=== PATIENT | male | born 1945 | race Caucasian/White ===

== ENCOUNTER 2020-08-02 10:17 | Outpatient (REF) | payer MEDICARE, SELFPAY ==
[2020-08-02 11:01] LABS: Estimated Average Glucose 105 mg/dL; Hemoglobin A1c % 5.3 %
[2020-08-02 11:22] LABS: Alanine Aminotransferase 24 U/L (0-40); Albumin Level 4.2 g/dL (3.5-5.0); Alkaline Phosphatase 86 U/L (39-117); Aspartate Amino Transferase 19 U/L (5-37); Bilirubin Direct 0.3 mg/dL (0.0-0.5); Bilirubin Total 0.9 mg/dL (0.0-1.0); Cholesterol 157 mg/dL; Glucose Fasting 100 mg/dL (60-99); HDL Cholesterol 40 mg/dL; LDL Cholesterol Calculated 96 mg/dl; Total Protein 6.6 g/dL (6.5-8.0); Triglycerides 107 mg/dL
[2020-08-02 12:41] LABS: Reflex LDLD? No
== END 2020-08-02 10:18 | disposition home or self-care (01) ==
LOC: HO.LNP 10:17
PROVIDERS: PCP Internal Medicine; Visit Provider Internal Medicine
DX: R73.03 Prediabetes (principal); E78.00 Pure hypercholesterolemia, unspecified
CPT/HCPCS: 80061; 80076; 82947; 83036

== ENCOUNTER 2021-02-20 10:40 | Outpatient (REF) | payer MEDICARE, SELFPAY ==
[2021-02-20 10:45] LABS: MANUAL DIFF FLAG NO
[2021-02-20 11:27] LABS: Basophils Percent Auto 0.3 % (0-2); Eosinophils Absolute Auto 0.1 X10*3/uL (0.0-0.4); Eosinophils Percent Auto 2.2 % (0-4); Hematocrit 41.8 % (42-52); Hemoglobin 13.6 g/dl (14.0-18.0); Imm Gran Abs Auto 0.01 X10*3/uL (0.00-0.03); Imm Gran Pct Auto 0.2 % (0.0-0.4); Lymphocytes Absolute Auto 1.9 X10*3/uL (1.2-4.9); Lymphocytes Percent Auto 29.8 % (20-40); Mean Corpuscular HGB Conc 32.5 g/dl (31.0-36.0); Mean Corpuscular Hemoglobin 30.2 pg (27.0-33.0); Mean Corpuscular Volume 92.9 fL (80-98); Mean Platelet Volume 9.8 fL (9.4-12.4); Monocytes Absolute Auto 0.5 X10*3/uL (0.1-1.2); Monocytes Percent Auto 7.7 % (2-11); Neutrophils Absolute Auto 3.8 X10*3/uL (2.0-8.3); Neutrophils Percent Auto 59.8 % (45-73); Platelet Count 209 X10*3/uL (160-400); Red Cell Distribution Width 13.6 % (11.0-16.0); White Blood Count 6.3 X10*3/uL (4.8-10.8)
[2021-02-20 12:07] LABS: Appearance Urine CLEAR; Color Urine YELLOW; Glucose Urine UA NEG (NEG); Leukocyte Esterase Urine NEG (NEG); Nitrite Urine NEG (NEG); Specific Gravity - Urine 1.015 (1.005-1.025); Urine Blood NEG (NEG); Urine Ketones NEG (NEG); Urine Protein NEG (NEG-TRACE)
[2021-02-20 12:48] LABS: Creatinine Urine 90.59 mg/dL
[2021-02-20 13:03] LABS: Estimated Average Glucose 111 mg/dL; Hemoglobin A1c % 5.5 %
[2021-02-20 14:45] LABS: Vitamin D 25-OH Total 46.6 ng/mL (>30)
[2021-02-20 14:46] LABS: Alanine Aminotransferase 21 U/L (0-40); Alkaline Phosphatase 84 U/L (39-117); Anion Gap 12 (12-20); Aspartate Amino Transferase 16 U/L (5-37); Bilirubin Total 0.8 mg/dL (0.0-1.0); Blood Urea Nitrogen 10 mg/dL (9-16); Calcium 8.5 mg/dL (8.4-10.2); Carbon Dioxide 27 mmol/L (22-29); Chloride 107 mmol/L (96-108); Cholesterol 142 mg/dL; Estimated Glomerular Filt Rate > 60; Glucose Fasting 106 mg/dL (60-99); HDL Cholesterol 41 mg/dL; LDL Cholesterol Calculated 86 mg/dl; Potassium 3.6 mmol/L (3.3-5.1); Sodium 142 mmol/L (135-145); Total Protein 6.2 g/dL (6.5-8.0); Triglycerides 77 mg/dL
[2021-02-20 15:17] LABS: PSA,Total (Free>4and<10) 1.88 ng/mL (0.00-4.00)
[2021-02-20 18:10] LABS: Reflex LDLD? No
== END 2021-02-20 10:41 | disposition home or self-care (01) ==
LOC: HO.LNP 10:40
PROVIDERS: Visit Provider Internal Medicine
DX: R73.03 Prediabetes (principal); I10 Essential (primary) hypertension; E78.00 Pure hypercholesterolemia, unspecified; E55.9 Vitamin D deficiency, unspecified; Z12.5 Encounter for screening for malignant neoplasm of prostate
CPT/HCPCS: 80053; 80061; 81003; 82043; 82306; 83036; 84153; 85025

== ENCOUNTER 2021-08-17 11:06 | Outpatient (REF) | payer MEDICARE, SELFPAY ==
[2021-08-17 12:02] LABS: Alanine Aminotransferase 15 U/L (0-40); Albumin Level 4.1 g/dL (3.5-5.0); Alkaline Phosphatase 84 U/L (39-117); Aspartate Amino Transferase 15 U/L (5-37); Bilirubin Direct 0.3 mg/dL (0.0-0.5); Bilirubin Total 0.7 mg/dL (0.0-1.0); Cholesterol 146 mg/dL; Glucose Fasting 111 mg/dL (60-99); HDL Cholesterol 36 mg/dL; LDL Cholesterol Calculated 91 mg/dl; Total Protein 6.7 g/dL (6.5-8.0); Triglycerides 96 mg/dL
[2021-08-17 12:08] LABS: Estimated Average Glucose 114 mg/dL; Hemoglobin A1c % 5.6 %
[2021-08-17 13:35] LABS: Reflex LDLD? No
== END 2021-08-17 11:07 | disposition home or self-care (01) ==
LOC: HO.LNP 11:06
PROVIDERS: Visit Provider Internal Medicine
DX: E78.00 Pure hypercholesterolemia, unspecified (principal); R73.03 Prediabetes
CPT/HCPCS: 80061; 80076; 82947; 83036

== ENCOUNTER 2022-02-22 12:10 | Outpatient (REF) | payer MEDICARE, SELFPAY ==
[2022-02-22 12:15] LABS: MANUAL DIFF FLAG NO
[2022-02-22 13:02] LABS: Appearance Urine Clear; Basophils Percent Auto 0.3 % (0-2); Color Urine Yellow; Eosinophils Absolute Auto 0.1 X10*3/uL (0.0-0.4); Eosinophils Percent Auto 1.8 % (0-4); Glucose Urine UA Negative (Negative); Hematocrit 42.6 % (42.0-52.0); Imm Gran Abs Auto 0.01 X10*3/uL (0.00-0.03); Imm Gran Pct Auto 0.1 % (0.0-0.4); Leukocyte Esterase Urine Negative (Negative); Lymphocytes Absolute Auto 1.8 X10*3/uL (1.2-4.9); Lymphocytes Percent Auto 25.9 % (20-40); Mean Corpuscular HGB Conc 32.9 g/dl (31.0-36.0); Mean Corpuscular Hemoglobin 30.3 pg (27.0-33.0); Mean Corpuscular Volume 92.2 fL (80.0-98.0); Mean Platelet Volume 9.6 fL (9.4-12.4); Monocytes Absolute Auto 0.6 X10*3/uL (0.1-1.2); Monocytes Percent Auto 8.1 % (2-11); Neutrophils Absolute Auto 4.3 x10*3/uL (2.0-8.3); Neutrophils Percent Auto 63.8 % (45-73); Nitrite Urine Negative (Negative); PH 6.5 (5.0-9.0); Platelet Count 219 X10*3/uL (160-400); Red Blood Count 4.62 X10*6/uL (4.60-5.80); Red Cell Distribution Width 13.6 % (11.0-16.0); Urine Blood Negative (Negative); Urine Ketones Negative (Negative); Urine Protein Negative (Neg-Trace); White Blood Count 6.8 X10*3/uL (4.8-10.8)
[2022-02-22 13:14] LABS: Estimated Average Glucose 111 mg/dL; Hemoglobin A1c % 5.5 %
[2022-02-22 13:15] LABS: Alanine Aminotransferase 17 U/L (0-40); Alkaline Phosphatase 83 U/L (39-117); Anion Gap 15 (12-20); Aspartate Amino Transferase 16 U/L (5-37); Bilirubin Total 1.1 mg/dL (0.0-1.0); Blood Urea Nitrogen 14 mg/dL (9-16); Carbon Dioxide 26 mmol/L (22-29); Chloride 105 mmol/L (96-108); Cholesterol 146 mg/dL; Estimated Glomerular Filt Rate > 60; Glucose Fasting 105 mg/dL (60-99); HDL Cholesterol 38 mg/dL; LDL Cholesterol Calculated 93 mg/dl; Potassium 3.6 mmol/L (3.3-5.1); Sodium 142 mmol/L (135-145); Total Protein 6.5 g/dL (6.5-8.0); Triglycerides 75 mg/dL
[2022-02-22 13:35] LABS: PSA,Total (Free>4and<10) 2.13 ng/mL (0.00-4.00); Vitamin D 25-OH Total 44.2 ng/mL (>30)
[2022-02-22 13:45] LABS: Creatinine Urine 174.91 mg/dL; Microalbum/Creatinine Ratio Ur 9.7 ug/mg cr
== END 2022-02-22 12:11 | disposition home or self-care (01) ==
LOC: HO.LNP 12:10
PROVIDERS: Visit Provider Internal Medicine
DX: Z12.5 Encounter for screening for malignant neoplasm of prostate (principal); I10 Essential (primary) hypertension; R73.03 Prediabetes; E78.00 Pure hypercholesterolemia, unspecified; E55.9 Vitamin D deficiency, unspecified
CPT/HCPCS: 80053; 80061; 81003; 82043; 82306; 83036; 84153; 85025

== ENCOUNTER 2022-08-20 11:05 | Outpatient (REF) | payer MEDICARE, SELFPAY ==
[2022-08-20 11:31] LABS: Estimated Average Glucose 111 mg/dL; Hemoglobin A1c % 5.5 %
[2022-08-20 12:16] LABS: Alanine Aminotransferase 16 U/L (0-40); Albumin Level 3.9 g/dL (3.5-5.0); Alkaline Phosphatase 92 U/L (39-117); Aspartate Amino Transferase 17 U/L (5-37); Bilirubin Direct 0.4 mg/dL (0.0-0.5); Bilirubin Total 1.1 mg/dL (0.0-1.0); Cholesterol 143 mg/dL; Glucose Fasting 105 mg/dL (60-99); HDL Cholesterol 39 mg/dL; LDL Cholesterol Calculated 90 mg/dl; Total Protein 6.3 g/dL (6.5-8.0); Triglycerides 70 mg/dL
[2022-08-20 14:22] LABS: Reflex LDLD? No
== END 2022-08-20 11:06 | disposition home or self-care (01) ==
LOC: HO.LNP 11:05
PROVIDERS: Visit Provider Internal Medicine
DX: R73.03 Prediabetes (principal); E78.00 Pure hypercholesterolemia, unspecified
CPT/HCPCS: 80061; 80076; 82947; 83036

== ENCOUNTER 2023-03-14 10:44 | Outpatient (REF) | payer MEDICARE, SELFPAY ==
[2023-03-14 10:48] LABS: MANUAL DIFF FLAG NO
[2023-03-14 11:31] LABS: Appearance Urine Clear; Color Urine Yellow; Glucose Urine UA Negative (Negative); Leukocyte Esterase Urine Negative (Negative); Nitrite Urine Negative (Negative); PH 7.5 (5.0-9.0); Urine Blood Negative (Negative); Urine Ketones Trace mg/dL (Negative); Urine Protein Negative (Neg-Trace)
[2023-03-14 11:34] LABS: Bacteria Urine None Seen (None Seen); Hyaline Casts Urine 0-2 /LPF (0-2); RBC Urine 0-2 /HPF (0-2); Squamous Epithelial Cell Urine 0-2 /HPF (0-2); WBC Urine 0-5 /HPF (0-5)
[2023-03-14 11:35] LABS: Basophils Absolute Auto 0.1 X10*3/uL (0.0-0.2); Basophils Percent Auto 0.5 % (0-2); Eosinophils Absolute Auto 0.2 X10*3/uL (0.0-0.4); Eosinophils Percent Auto 1.7 % (0-4); Hematocrit 44.3 % (42.0-52.0); Hemoglobin 14.4 g/dl (14.0-18.0); Imm Gran Abs Auto 0.03 X10*3/uL (0.00-0.03); Imm Gran Pct Auto 0.3 % (0.0-0.4); Lymphocytes Absolute Auto 1.2 X10*3/uL (1.2-4.9); Lymphocytes Percent Auto 11.9 % (20-40); Mean Corpuscular HGB Conc 32.5 g/dl (31.0-36.0); Mean Corpuscular Hemoglobin 30.4 pg (27.0-33.0); Mean Corpuscular Volume 93.7 fL (80.0-98.0); Mean Platelet Volume 9.8 fL (9.4-12.4); Monocytes Absolute Auto 0.7 X10*3/uL (0.1-1.2); Monocytes Percent Auto 6.9 % (2-11); Neutrophils Absolute Auto 7.8 x10*3/uL (2.0-8.3); Neutrophils Percent Auto 78.7 % (45-73); Platelet Count 227 X10*3/uL (160-400); Red Blood Count 4.73 X10*6/uL (4.60-5.80); Red Cell Distribution Width 13.5 % (11.0-16.0); White Blood Count 9.9 X10*3/uL (4.8-10.8)
[2023-03-14 12:00] LABS: Alanine Aminotransferase 12 U/L (0-40); Albumin Level 4.2 g/dL (3.5-5.0); Alkaline Phosphatase 80 U/L (39-117); Anion Gap 14 (12-20); Aspartate Amino Transferase 18 U/L (5-37); Bilirubin Total 1.2 mg/dL (0.0-1.0); Blood Urea Nitrogen 9 mg/dL (9-16); Calcium 9.5 mg/dL (8.4-10.2); Carbon Dioxide 27 mmol/L (22-29); Chloride 103 mmol/L (96-108); Cholesterol 149 mg/dL (<200); Estimated Average Glucose 103 mg/dL; Estimated Glomerular Filt Rate > 60; Glucose Fasting 110 mg/dL (60-99); HDL Cholesterol 41 mg/dL (>40); Hemoglobin A1c % 5.2 % (<6.0); LDL Cholesterol Calculated 88 mg/dL (<100); Potassium 3.3 mmol/L (3.3-5.1); Sodium 141 mmol/L (135-145); Triglycerides 100 mg/dL (<150)
[2023-03-14 12:06] LABS: PSA,Total (Free>4and<10) 2.52 ng/mL (0.00-4.00)
[2023-03-14 12:07] LABS: Vitamin D 25-OH Total 72.6 ng/mL (>30)
[2023-03-14 12:26] LABS: Creatinine Urine 42.69 mg/dL; Microalbumin Urine < 5.0 mg/L
== END 2023-03-14 10:45 | disposition home or self-care (01) ==
LOC: HO.LNP 10:44
PROVIDERS: Visit Provider Internal Medicine
DX: I10 Essential (primary) hypertension (principal); R73.03 Prediabetes; E78.00 Pure hypercholesterolemia, unspecified; E55.9 Vitamin D deficiency, unspecified; Z12.5 Encounter for screening for malignant neoplasm of prostate
CPT/HCPCS: 80053; 80061; 81001; 82043; 82306; 82570; 83036; 84153; 85025

== ENCOUNTER 2023-07-04 10:43 | Outpatient (REF) | payer MEDICARE, SELFPAY ==
[2023-07-04 12:12] LABS: TSH reflex Free T4 1.27 uIU/mL (0.32-4.0)
[2023-07-04 12:20] LABS: Folate 15.8 ng/mL (> or = 4.0); Vitamin B12 608 pg/mL (200-900)
== END 2023-07-04 10:44 | disposition home or self-care (01) ==
LOC: HO.LNP 10:43
PROVIDERS: Visit Provider Internal Medicine
DX: R41.3 Other amnesia (principal)
CPT/HCPCS: 82607; 82746; 84443

== ENCOUNTER 2023-07-20 09:35 | Outpatient (REF) | payer MEDICARE, SELFPAY ==
--- NOTE | ~2023-07-20 | MR_ITS ---
MRI OF THE BRAIN WITHOUT IV CONTRAST INDICATION: Memory loss. COMPARISON: None available. TECHNIQUE: Multiplanar multisequence MR imaging of the brain was obtained without IV contrast. FINDINGS: There is no hydrocephalus, extra-axial surface collection, or herniation. There is global cerebral volume loss and there is moderate chronic microangiopathy. There is right greater than left hippocampal volume loss. The major flow voids at the skull base are preserved. There is no acute infarct on diffusion-weighted imaging. There is no intracranial hemorrhage on the gradient recalled echo acquisition. The midline structures are normal. The cerebellar tonsils are normally positioned. The cerebellum and brainstem are normal. The craniocervical junction is normal. Osseous marrow signal intensity is homogenous. The visualized soft tissues are unremarkable. MR/MR head/brain wo con IMPRESSION: No acute intracranial findings. There is global cerebral volume loss and there is moderate chronic microangiopathy. There is right greater than left hippocampal volume loss.
== END 2023-07-20 09:36 | disposition home or self-care (01) ==
LOC: HO.MRI 09:35
PROVIDERS: PCP Internal Medicine; Visit Provider Internal Medicine
DX: R41.3 Other amnesia (principal)
CPT/HCPCS: 70551

== ENCOUNTER 2023-09-09 10:51 | Outpatient (REF) | payer MEDICARE, SELFPAY ==
[2023-09-09 11:18] LABS: Estimated Average Glucose 111 mg/dL; Hemoglobin A1c % 5.5 % (<6.0)
[2023-09-09 11:41] LABS: Alanine Aminotransferase 24 U/L (0-40); Albumin Level 4.1 g/dL (3.5-5.0); Alkaline Phosphatase 109 U/L (39-117); Aspartate Amino Transferase 20 U/L (5-37); Bilirubin Direct 0.3 mg/dL (0.0-0.5); Bilirubin Total 0.8 mg/dL (0.0-1.0); Cholesterol 139 mg/dL (<200); Glucose Fasting 113 mg/dL (60-99); HDL Cholesterol 42 mg/dL (>40); LDL Cholesterol Calculated 84 mg/dL (<100); Total Protein 7.1 g/dL (6.5-8.0); Triglycerides 67 mg/dL (<150)
[2023-09-09 12:50] LABS: Reflex LDLD? No
== END 2023-09-09 10:52 | disposition home or self-care (01) ==
LOC: HO.LNP 10:51
PROVIDERS: Visit Provider Internal Medicine
DX: R73.09 Other abnormal glucose (principal); E78.00 Pure hypercholesterolemia, unspecified
CPT/HCPCS: 80061; 80076; 82947; 83036

== ENCOUNTER 2024-03-06 10:52 | Outpatient (REF) | payer MEDICARE, SELFPAY ==
[2024-03-06 10:56] LABS: MANUAL DIFF FLAG NO
[2024-03-06 11:06] LABS: Appearance Urine Clear; Color Urine Yellow; Glucose Urine UA Negative (Negative); Leukocyte Esterase Urine Negative (Negative); Nitrite Urine Negative (Negative); PH 6.5 (5.0-9.0); Urine Blood Negative (Negative); Urine Ketones Negative (Negative); Urine Protein Negative (Neg-Trace)
[2024-03-06 11:10] LABS: Bacteria Urine None Seen (None Seen); Hyaline Casts Urine 0-2 /LPF (0-2); RBC Urine 0-2 /HPF (0-2); Squamous Epithelial Cell Urine 0-2 /HPF (0-2); WBC Urine 0-5 /HPF (0-5)
[2024-03-06 11:18] LABS: Basophils Percent Auto 0.4 % (0-2); Eosinophils Absolute Auto 0.2 X10*3/uL (0.0-0.4); Eosinophils Percent Auto 2.9 % (0-4); Hemoglobin 14.3 g/dl (14.0-18.0); Imm Gran Abs Auto 0.01 X10*3/uL (0.00-0.03); Imm Gran Pct Auto 0.1 % (0.0-0.4); Lymphocytes Absolute Auto 2.1 X10*3/uL (1.2-4.9); Lymphocytes Percent Auto 30.3 % (20-40); Mean Corpuscular HGB Conc 33.3 g/dl (31.0-36.0); Mean Corpuscular Hemoglobin 30.9 pg (27.0-33.0); Mean Corpuscular Volume 92.9 fL (80.0-98.0); Mean Platelet Volume 9.6 fL (9.4-12.4); Monocytes Absolute Auto 0.6 X10*3/uL (0.1-1.2); Monocytes Percent Auto 7.9 % (2-11); Neutrophils Percent Auto 58.4 % (45-73); Platelet Count 220 X10*3/uL (160-400); Red Blood Count 4.63 X10*6/uL (4.60-5.80); Red Cell Distribution Width 13.6 % (11.0-16.0); White Blood Count 6.9 X10*3/uL (4.8-10.8)
[2024-03-06 11:34] LABS: PSA,Total (Free>4and<10) 2.88 ng/mL (0.00-4.00)
[2024-03-06 11:41] LABS: Vitamin D 25-OH Total 57.8 ng/mL (>30)
[2024-03-06 12:20] LABS: Alanine Aminotransferase 20 U/L (0-40); Albumin Level 4.1 g/dL (3.5-5.0); Alkaline Phosphatase 89 U/L (39-117); Anion Gap 12 (12-20); Aspartate Amino Transferase 20 U/L (5-37); Bilirubin Total 0.8 mg/dL (0.0-1.0); Blood Urea Nitrogen 14 mg/dL (9-16); Calcium 9.3 mg/dL (8.4-10.2); Carbon Dioxide 26 mmol/L (22-29); Chloride 107 mmol/L (96-108); Cholesterol 139 mg/dL (<200); Estimated Glomerular Filt Rate > 60; Glucose Fasting 101 mg/dL (60-99); HDL Cholesterol 39 mg/dL (>40); LDL Cholesterol Calculated 83 mg/dL (<100); Potassium 3.4 mmol/L (3.3-5.1); Sodium 142 mmol/L (135-145); Triglycerides 85 mg/dL (<150)
== END 2024-03-06 10:53 | disposition home or self-care (01) ==
LOC: HO.LNP 10:52
PROVIDERS: Visit Provider Internal Medicine
DX: I10 Essential (primary) hypertension (principal); E78.00 Pure hypercholesterolemia, unspecified; E55.9 Vitamin D deficiency, unspecified; Z12.5 Encounter for screening for malignant neoplasm of prostate
CPT/HCPCS: 80053; 80061; 81001; 82306; 84153; 85025

== ENCOUNTER 2024-09-03 10:26 | Outpatient (REF) | payer MEDICARE, SELFPAY ==
[2024-09-03 10:52] LABS: Alanine Aminotransferase 21 U/L (0-40); Albumin Level 4.2 g/dL (3.5-5.0); Alkaline Phosphatase 100 U/L (39-117); Aspartate Amino Transferase 25 U/L (5-37); Bilirubin Direct 0.3 mg/dL (0.0-0.5); Bilirubin Total 0.8 mg/dL (0.0-1.0); Cholesterol 147 mg/dL (<200); Glucose Fasting 109 mg/dL (60-99); HDL Cholesterol 42 mg/dL (>40); LDL Cholesterol Calculated 91 mg/dL (<100); Total Protein 6.9 g/dL (6.5-8.0); Triglycerides 73 mg/dL (<150)
[2024-09-03 11:18] LABS: Estimated Average Glucose 111 mg/dL; Hemoglobin A1C 137.7578 umol/L; Hemoglobin A1c % 5.5 % (<6.0); Total Hemoglobin (HGBA1C) 3713.6547 umol/L
--- OUTSIDE RECORDS SUMMARY | 2024-09-03 11:32 | XMS_ITS ---
Author Organization Edvin Haynes MD Address [address] [place], [place] [phone] Care Team Providers Care Shaft Repairer Name Role Phone Edvin Haynes Primary Care Provider Results Component Value Reference Range Notes Hemoglobin A1c (Not yet revi ewed by provider) Interpretation: Performing Lab:[facility], [address] [place] [phone] Notes/Report: Hemoglobin A1c % 5.5 <6.0 % [...] average glucose, using the formula of the E6J-Fvwhflq Average Glucose study (ADAG), Diabetes Care, Vol.31,#8, Jan. 2007 REASON FOR VISIT fasting lipids Encounters Encounter Location Date Provider Diagnosis Edvin Haynes MD [address] [place] [phone] 09/03/2024 Edvin Haynes Prediabetes R73.09 a nd Pure hypercholesterolemia E78.00 Assessments Encounter Date Diagnosis (ICD Code) Assessment Notes Treatment Notes Treatment Clinical Notes Section Notes 09/03/2024 Prediabetes (ICD-10 - R73.09) 09/03/2024 Pure hypercholesterolemia (ICD-10 - E78.00) Plan Of Treatment Pending Test Test Name Order Date Liver Panel 09/03/2024 Glucose Fasting 09/03/2024 Lipid Panel with Reflex 09/03/2024 Hemoglobin A1c 09/03/2024 Next Appt Details Provider Name:Edvin Wayne ier, 09/14/2024 10:15:00 AM, [address] [place] [address], Suite [facility], [place], [place], [phone], Provider Name:Edvin Wayne ier, 03/09/2025 07:30:00 AM, [address] [place] [address], Suite [facility], [place], [place], [phone], Provider Name:Edvin Wayne ier, 03/16/2025 10:30:00 AM, [address] [place] [address], Suite [facility], [place], [place], [phone], Progress Notes * Madhu NGUYENDOB:[birth year] (79 yo M)Acc No.[id number]:09/03/2024 Progress Note Patient:?NGUYEN, Madhu Cueva Provider:?Edvin Haynes MD :1945???Age:79 Y???Sex:Male David e:09/03/2024 Address:[address] [place], [place] [phone] Subjective: * Chief Complaints: * ???1. Fasting lipids. * Medical History:? Objective: * Vitals:? Assessment: * Assessment: 1.?Prediabetes - R73.09 (Melinda shipley)???2.?Pure hypercholesterolemia - E78.00??? Plan: * Treatment: 2.?Pure hypercholesterolemia ?LAB: Liver Panel ?LAB: Glucose Fasting ?LAB: Lipid Panel with Reflex ?LAB: Hemoglobin A1c (Collection Date & Time - 09/03/2024 07:30 AM) * Procedure Codes:?55139 VENIP UNCT, ROUTINE* * * The named appointment provid er may or may not be the originator of this progress note, and it is not deemed complete until electronically signed by the appointment provider. Sign off status: Pending * Provider:?Edvin Haynes MD Date:?0 09/03/2024 Generated for Manuel marc/Dinh/Marilynitting on:?09/03/2024 11:32 AM EDT
--- OUTSIDE RECORDS SUMMARY | 2024-09-03 11:32 | XMS_ITS ---
Author Organization Edvin Haynes MD Address 10 [facility] [address] [place] [phone] Care Team Providers Care Firmware Architect Name Role Phone Edvin Haynes Primary Care Provider REASON FOR VISIT PH/TCM Encounters Encounter Location Date Provider Diagnosis Edvin Haynes MD 10 [facility] [address] [place] [phone] 05/29/2024 Edvin Haynes Plan Of Treatment Next Appt Details Provider Name:Edvin dunne, 09/14/2024 10:15:00 AM, [address] [place] [address], [address], [phone], Provider Name:Edvin arreagar, 03/09/2025 07:30:00 AM, [address] [place] [address], [address], [phone], Provider Name:Edvin dunne, 03/16/2025 10:30:00 AM, [address] [place] [address], [address], [phone], Progress Notes * Madhu COLONDOB:[birth year] (79 yo M)Acc No.[id number]:05/29/2024 Patient:?Madhu COLON Provider:?Edvin Haynes MD :1945???Age:79 Y???Sex:Male David e:05/29/2024 Address:[address] [place] [address] Subjective: * Chief Complaints: * ???1. PH/TCM. * Medical History:? Objective: * Vitals:? Assessment: Plan: * Treatment: * * The named appointment provid er may or may not be the originator of this progress note, and it is not deemed complete until electronically signed by the appointment provider. Sign off status: Pending * Provider:?Edvin Haynes MD Date:?1 07/30/2023 Generated for Manuel marc/Dinh/eTbritsmitting on:?09/03/2024 11:31 AM EDT
--- OUTSIDE RECORDS SUMMARY | 2024-09-03 11:32 | XMS_ITS ---
Author Organization Edvin Haynes MD Address [address] [place], [place] [id number] Care Team Providers Care Upper Stitcher Name Role Phone Edvin Haynes Primary Care Provider Allergies No Known Allergies Results Component Value Reference Range Notes Occult Blood, Stool, Guaiac Reviewed date:03/12/2024 12:01:13 PM Interpretation:Negative Performing Lab: Notes/Report: Negative Occult Blood, Stool, Guaiac Neg REASON FOR VISIT COMP EXAM Medications Medication SIG (Take, Route, Frequency, Duration) Notes Start Date End Date Status Acetaminophen ER 650 MG 1 tablets as nee ded Orally every 8 hrs Active Fish Oil 1000 MG 1 capsule Orally Thr ee times a week Active Centrum Silver - Orally Act george Latanoprost 0.005 % INSTILL 1 DROP IN EA CH EYE IN THE EVENING Ophthalmic for 20 Active Vitamin D3 1000 UNIT 1 capsule Orally On ce a day Active amLODIPine Besy-Benazepril HCl 10-40 MG TAKE ONE CAPSULE BY MOUTH EVERY DAY Active Simvastatin 20 MG TAKE ONE TABLET BY M OUTH EVERY DAY IN THE EVENING Active Zinc 100 MG 1 tablet Orally Once a day for 30 day(s) Active Imiquimod 3.75 % 1 application at bed time, leave on for 8 hours then wash off Externally Once a day Active Omeprazole 20 MG 1 capsule Orally Onc e a day Active Social History Tobacco Use: Social History Observation Description Date Details (start date - stop date) Former Smoker NA - NA Tobacco Use/Smoking Question Answer Notes Patient is a former smoker How long has it been since y ou last smoked? > 10 years Additional Findings: Tobacco Non-User Fo rmer smoker, currently using no form of tobacco Alcohol Screen Question Answer Notes Did you have a drink containing alcohol in the p ast year? No Points 0 Interpretation Negative Vital Signs Blood pressure systolic 138 mm Hg 03/12/20 24 Blood pressure diastolic 82 mm Hg 024 Height 71 in 03/12/2024 Weight 222 lbs 03/12/2024 BMI 30.96 kg/m2 03/12/2024 weight is up 2 pounds since 09-17-23 Encounters Encounter Location Date Provider Diagnosis Edvin Haynes MD [address] [place] [address] [place] [phone] 03/12/2024 Edvin Haynes Essential hypertensi on I10 ; Prediabetes R73.09 ; Pure hypercholesterolemia E78.00 ; Basal cell carcinoma C44.91 ; Vitamin D deficiency E55.9 ; Colon cancer screening Z12.11 and Depression screening Z13.31 Assessments Encounter Date Diagnosis (ICD Code) Assessment Notes Treatment Notes Treatment Clinical Notes Section Notes 03/12/2024 Essential hypertensi on (ICD-10 - I10) doing well, stable at goal, will continue current regiment 03/12/2024 Prediabetes (ICD-10 - R73.09) stable. no need for medication at this time 03/12/2024 Pure hypercholesterolemia (ICD-10 - E78.00) well controlled, will continue current regiment and will continue to monitor 03/12/2024 Basal cell carcinoma (ICD-10 - C44.91) followed by dermatology. had recent skin lesion removed 03/12/2024 Vitamin D deficiency (ICD-10 - E55.9) stbale, will continue current regiment 03/12/2024 Colon cancer screeni ng (ICD-10 - Z12.11) guaiac negative 03/12/2024 Depression screening (ICD-10 - Z13.31) negative screen Plan Of Treatment Medication Medication Name Sig Start Date Stop Date Notes Vitamin D3 1000 UNIT 1 capsule Orally Once a day amLODIPine Besy-Benazepril H Cl 10-40 MG TAKE ONE CAPSULE BY MOUTH EVERY DAY Simvastatin 20 MG TAKE ONE TABLET BY M OUTH EVERY DAY IN THE EVENING Treatment Notes Assessment Notes Essential hypertension doing well, stabl e at goal, will continue current regiment Prediabetes stable. no need for medication at this time Pure hypercholesterolemia well controlle d, will continue current regiment and will continue to monitor Basal cell carcinoma followed by dermato logy. had recent skin lesion removed Vitamin D deficiency stbale, will contin ue current regiment Colon cancer screening guaiac negative Depression screening negative screen Next Appt Details Follow Up: 6 Months, Reason: bp Provider Name:Edvin Wayne iegloria, 09/14/2024 10:15:00 AM, [address] [place] [address], [place] [address], [place], [place], [phone], Provider Name:Edvin dunne, 03/09/2025 07:30:00 AM, [address] [place] [address], [place] [address], [place], [place], [phone], Provider Name:Edvin arreagar, 03/16/2025 10:30:00 AM, [address] [place] [address], [place] [address], [place], [place], [phone], Progress Notes * Madhu NGUYENDOB:[birth year] (79 yo M)Acc No.[id number]:03/12/2024 Patient:?Madhu Nguyen Provider:?Edvin Haynes MD :1945???Age:79 Y???Sex:Male David e:03/12/2024 Address:[address] [place], [place] [id number] Subjective: * Chief Complaints: * ???COMP EXAM * HPI: ???Depression Screening:?PHQ-9?Little interest or pleasure in doing things?Not at all,?Feeling down, depressed, or hopeless?Not at all,?Trouble falling or staying asleep, or sleeping too much?Not at all,?Feeling tired or having little energy?Not at all,?Poor appetite or overeating?Not at all,?Feeling bad about yourself or that you are a failure, or have let yourself or your family down?Not at all,?Trouble concentrating on things, such as reading the newspaper or watching television?Not at all,?Moving or speaking so slowly that other people could have noticed; or the opposite, being so fidgety or restless that you have been moving around a lot more than usual?Not at all,?Thoughts that you would be better off or of hurting yourself in some way?Not at all,?Total Score?0.?Interpretation and Intervention?Depression Screening Findings?Negative,?Follow-Up for Depression?: review of PHQ-9 found negative result, no follow-up needed.?Communication Needs:?Communication Needs?Does the patient have a hearing impairment?No,?Does the patient have a vision impairment??Yes,?If yes, what is the vision impairment??Glasses,?Does the patient have a cognition impairment??No.?Fall Risk:?History?Have you had any falls with injury in the past year??No,?Have you had two or more falls in the past year??No.?SDOH Questions:?SDOH Questions?In the past year have you been worried about losing housing??No,?In the past year have you or any family members you live with been unable to get any of the following when it was really needed? Check all that apply:?None.?Symptom(s):? pt is a 79 yo male having trouble with short term memory. is conscious of it and brings papers to keep organized. * ROS:?Respiratory:?Patient denies?shortness of breath with exertion shortness of breath at rest.?Cardiovascular:?Patient denies?chest pain with exertion chest pain at rest.?Gastrointestinal:?Comments?bowels have change in that they are shorter but same diameter..?Genitourinary:?Patient denies?difficulty urinating.? * Medical History:? * Surgical History:? * Hospitalization/Major Diagno stic Procedure:? * Family History:?Father: dece ased 62 yrs.?Mother: 72 yrs.?4 brother(s) . 2 son(s) , 1 daughter(s) . .? Father Brain Aneurysm Mother- Stomach Cancer, Denies mental health/substance abuse family history, Denies mental health/substance abuse family history, No pertinent family medical history, No pertinent family medical history. * Social History:?Tobacco Use:?Tobacco Use/Smoking?Patient is a?former smoker,?How long has it been since you last smoked??> 10 years,?Additional Findings: Tobacco Non-User?Former smoker, currently using no form of tobacco.?Drugs/Alcohol:?Alcohol Screen?Did you have a drink containing alcohol in the past year??No,?Points?0,?Interpretation?Negative.?Miscellaneous:?Caffeine: yes, frequency:, 2-3 cups per day. Children: yes. no Community involvements. Exercise: yes, yard work. Housing: owning. Living with: significant other. Marital status: . Occupation: works part-time. Pets: cat x1. no Travel outside of the [place]. * Medications:?TakingImiquimod 3.75 % Cream 1 application at bedtime, leave on for 8 hours then wash off Externally Once a dayZinc 100 MG Tablet 1 tablet Orally Once a dayOmeprazole 20 MG Capsule Delayed Release 1 capsule Orally Once a dayCentrum Silver - Tablet Orally Latanoprost 0.005 % Solution INSTILL 1 DROP IN EACH EYE IN THE EVENING Ophthalmic Vitamin D3 1000 UNIT Capsule 1 capsule Orally Once a daySimvastatin 20 MG Tablet TAKE ONE TABLET BY MOUTH EVERY DAY IN THE EVENING amLODIPine Besy-Benazepril HCl 10-40 MG Capsule TAKE ONE CAPSULE BY MOUTH EVERY DAY Acetaminophen ER 650 MG Tablet Extended Release 1 tablets as needed Orally every 8 hrsFish Oil 1000 MG Capsule 1 capsule Orally Three times a weekMedication List reviewed and reconciled with the patientTaking Imiquimod 3.75 % Cream 1 application at bedtime, leave on for 8 hours then wash off Externally Once a dayTaking Zinc 100 MG Tablet 1 tablet Orally Once a dayTaking Omeprazole 20 MG Capsule Delayed Release 1 capsule Orally Once a dayTaking Centrum Silver - Tablet Orally Taking Latanoprost 0.005 % Solution INSTILL 1 DROP IN EACH EYE IN THE EVENING Ophthalmic Taking Vitamin D3 1000 UNIT Capsule 1 capsule Orally Once a dayTaking Simvastatin 20 MG Tablet TAKE ONE TABLET BY MOUTH EVERY DAY IN THE EVENING Taking amLODIPine Besy-Benazepril HCl 10-40 MG Capsule TAKE ONE CAPSULE BY MOUTH EVERY DAY Taking Acetaminophen ER 650 MG Tablet Extended Release 1 tablets as needed Orally every 8 hrsTaking Fish Oil 1000 MG Capsule 1 capsule Orally Three times a weekMedication List reviewed and reconciled with the patient * Allergies:?N.K.D.A.yes[Aller gies Verified] Objective: * Vitals:?Ht: 71, Wt:222, BMI: 30.96, BP:138/82 weight is up 2 pounds since 09-17-23. * ???Past Orders: ???Lab:Vitamin D 25-OH Total (Order Date - 03/06/2024) (Collection Date - 03/06/2024) ? Value Reference Range ?Vitamin D 25-OH Total 57.8 >30 - ng/mL ???Lab:PSA,Total (Free>4and< 10) (Order Date 03/06/2024) (Collection Date - 03/06/2024) ? Value Reference Range ?PSA,Total (Free>4and<10) 2.88 0.00-4.00 - ng/mL ???Lab:Lipid Panel (Order Da 03/06/2024) (Collection Date - 03/06/2024) ? Value Reference Range ?Triglycerides 85 <150 - mg/dL ?Cholesterol 139 <200 - m g/dL ?LDL Cholesterol Calculated 83 <100 - mg/dL ?HDL Cholesterol 39 L >40 - mg/dL ???Lab:Comprehensive [place]. P arianna Fast (Order Date - 03/06/2024) (Collection Date - 03/06/2024) ? Value Reference Range ?Sodium 142 135-145 - mmo l/L ?Bilirubin Total 0.8 0.0- 1.0 - mg/dL ?Aspartate Amino Transferase 20 5-37 - U/L ?Alanine Aminotransferase 20 0-40 - U/L ?Total Protein 7.0 6.5-8. 0 - g/dL ?Albumin Level 4.1 3.5-5. 0 - g/dL ?Alkaline Phosphatase 89 39-117 - U/L ?Potassium 3.4 3.3-5.1 - mmol/L ?Chloride 107 96-108 - mm ol/L ?Carbon Dioxide 26 22-29 - mmol/L ?Anion Gap 12 12-20 - ?Blood Urea Nitrogen 14 9-16 - mg/dL ?Creatinine 0.82 0.5-1.4 - mg/dL ?Estimated Glomerular Filt Rate > 60 - ?Glucose Fasting 101 H 60-9 9 - mg/dL ?Calcium 9.3 8.4-10.2 - m g/dL ???Lab:Complete Blood Count Auto Diff (Order Date - 03/06/2024) (Collection Date - 03/06/2024) ? Value Reference Range ?White Blood Count 6.9 4. 8-10.8 - X10*3/uL ?Red Blood Count 4.63 4.60 -5.80 - X10*6/uL ?Hemoglobin 14.3 14.0-18.0 - g/dl ?Hematocrit 43.0 42.0-52.0 - % ?Mean Corpuscular Volume 92.9 80.0-98.0 - fL ?Mean Corpuscular Hemoglobin 30.9 27.0-33.0 - pg ?Mean Corpuscular HGB Conc 33.3 31.0-36.0 - g/dl ?Red Cell Distribution Width 13.6 11.0-16.0 - % ?Platelet Count 220 160-4 00 - X10*3/uL ?Mean Platelet Volume 9.6 9.4-12.4 - fL ?Neutrophils Percent Auto 58.4 45-73 - % ?Imm Gran Pct Auto 0.1 0. 0-0.4 - % ?Lymphocytes Percent Auto 30.3 20-40 - % ?Monocytes Percent Auto 7.9 2-11 - % ?Eosinophils Percent Auto 2.9 0-4 - % ?Basophils Percent Auto 0.4 0-2 - % ?NRBC Pct Auto 0.0 0.0-0. 2 - /100WBC ?Neutrophils Absolute Auto 4.0 2.0-8.3 - x10*3/uL ?Imm Gran Abs Auto 0.01 0. 00-0.03 - X10*3/uL ?Lymphocytes Absolute Auto 2.1 1.2-4.9 - X10*3/uL ?Monocytes Absolute Auto 0.6 0.1-1.2 - X10*3/uL ?Eosinophils Absolute Auto 0.2 0.0-0.4 - X10*3/uL ?Basophils Absolute Auto 0.0 0.0-0.2 - X10*3/uL ?NRBC Abs Auto 0.000 0.0-0. 012 - X10*3/uL ???Lab: ClnCatch+Micro w/r flx Cult (Order Date - 03/06/2024) (Collection Date - 03/06/2024) ? Value Reference Range ?Color Urine Yellow - ?Appearance Urine Clear - ?PH 6.5 5.0-9.0 - ?Glucose Urine UA Negative Neg ative - mg/dL ?Urine Blood Negative Negative - ?Specific [place] - Urine 1.020 1.005-1.025 - ?Urine Protein Negative Neg-Tr reagan - mg/dL ?Urine Ketones Negative Negati ve - mg/dL ?Nitrite Urine Negative Negati ve - ?Leukocyte Esterase Urine Negative Negative - ?RBC Urine 0-2 0-2 - /HPF ?WBC Urine 0-5 0-5 - /HPF ?Squamous Epithelial Cell Urine 0-2 0-2 - /HPF ?Bacteria Urine None Seen None Seen - ?Hyaline Casts Urine 0-2 0-2 - /LPF * Examination: ???General Examination: ?GENERAL APPEARANCE:? alert, well hydrated, in no distress .?HEAD:? normocephalic.?EYES:? BOTH EYES, normal.?EARS:? BOTH EARS, normal.?THROAT:? no erythema, no exudate, pharynx normal.?NECK/THYROID:? no carotid bruit, no cervical lymphadenopathy.?SKIN:? good turgor.?HEART:? regular rate and rhythm, no murmurs, rubs, gallops.?LUNGS:? no wheezes, rales, rhonchi, good air movement, clear to auscultation bilaterally.?ABDOMEN:? soft, nontender, nondistended.?RECTAL EXAM:? stool guaiac negative, prostate normal.?MALE GENITOURINARY:? testes descended bilaterally, no testicular mass.?EXTREMITIES:? no edema.? Assessment: * Assessment: 1.?Essential hypertension - I10 (Primary)?2.?Prediabetes - R73.09?3.?Pure hypercholesterolemia - E78.00?4.?Basal cell carcinoma - C44.91?5.?Vitamin D deficiency - E55.9?6.?Colon cancer screening - Z12.11?7.?Depression screening - Z13.31? Plan: * Treatment: 2.?Prediabetes? Notes: stable. no need for medication at this time?? 3.?Pure hypercholesterolemia ? Continue Simvastatin Tablet, 20 MG, TAKE ONE TABLET BY MOUTH EVERY DAY IN THE EVENING.?? Notes: well controlled, will continue current regiment and will continue to monitor?? 4.?Basal cell carcinoma? Notes: followed by dermatology. had recent skin lesion removed?? 5.?Vitamin D deficiency? Continue Vitamin D3 Capsule, 1000 UNIT, 1 capsule, Orally, Once a day.?? Notes: stbale, will continue current regiment?? 6.?Colon cancer screening?LAB: Occult Blood, Stool, Guaiac?Negative ? Value Reference Range ?Occult Blood, Stool, Guaiac Neg Notes: guaiac negative??7.?Depression screening? Notes: negative screen?? * Procedure Codes:?18057 TEST FOR BLOOD, FECES * Preventive Medicine:? ??Counseling:?Care goal follow-up plan:?Counseling for abnormal BMI provided?Yes,?Above Normal BMI Follow-up?Giving encouragement to exercise.? * Follow Up:?6 Months (Reason: bp) * * Sign off status: Completed true * Provider:?Edvin Haynes MD Date:?1 Generated for Manuel marc/Dinh/eTbritsmitting on:?09/03/2024 11:31 AM EDT History and Physical Notes * HPI (History of Present Illness) Category Sub-Category Detail Notes Category Not es Symptom(s) pt is a 79 yo m ada having trouble with short term memory. is conscious of it and brings papers to keep organized Depression Screening PHQ-9 Little inte rest or pleasure in doing things: Not at all Feeling down, depressed, or hopeless: No t at all Trouble falling or staying asleep, or sl eeping too much: Not at all Feeling tired or having little energy: N ot at all Poor appetite or overeating: Not at all Feeling bad about yourself o r that you are a failure, or have let yourself or your family down: Not at all Trouble concentrating on thi ngs, such as reading the newspaper or watching television: Not at all Moving or speaking so slowly that other people could have noticed; or the opposite, being so fidgety or restless that you have been moving around a lot more than usual: Not at all Thoughts that you would be b enoch off or of hurting yourself in some way: Not at all Total Score: 0 Interpretation and Intervention Depression Aure chau Findings: Negative Follow-Up for Depression: : review of PH Q-9 found negative result, no follow-up needed SDOH Questions SDOH Questions In the past year have you been worried about losing housing?: No In the past year have you or any family members you live with been unable to get any of the following when it was really needed? Check all that apply:: None Fall Risk History Have you had any falls with injury i n the past year?: No Have you had two or more falls in the year?: No Communication Needs Communication Needs Does the patient have a hearing impairment: No Does the patient have a vision impairmen t?: Yes ?If yes, what is the vision impairment?: Glasses Does the patient have a cognition impair ment?: No Examination Category Sub-Category Detail Notes Category Not es General Examination GENERAL APPEARANCE: alert, w ell hydrated, in no distress HEAD: normocephalic EYES: BOTH EYES, normal EARS: BOTH EARS, normal THROAT: no erythema, no exud ate, pharynx normal NECK/THYROID: no carotid bruit, no cervical lymphadenopathy HEART: regular rate and rhy thm, no murmurs, rubs, gallops LUNGS: no wheezes, rales, r honchi, good air movement, clear to auscultation bilaterally ABDOMEN: soft, nontender, non distended SKIN: good turgor EXTREMITIES: no edema MALE GENITOURINARY: testes descended chuck aterally, no testicular mass RECTAL EXAM: stool guaiac negativ e, prostate normal
[2024-09-03 13:08] LABS: Reflex LDLD? No
== END 2024-09-03 10:27 | disposition home or self-care (01) ==
LOC: HO.LNP 10:26
PROVIDERS: Visit Provider Internal Medicine
DX: R73.09 Other abnormal glucose (principal); E78.00 Pure hypercholesterolemia, unspecified
CPT/HCPCS: 80061; 80076; 82947; 83036

== ENCOUNTER 2025-03-09 09:32 | Outpatient (REF) | payer MEDICARE, SELFPAY ==
--- OUTSIDE RECORDS SUMMARY | 2024-05-29 13:30 | XMS_ITS ---
Author Organization Edvin Haynes MD Address 10 [facility] [address] [place] [phone] Care Team Providers Care Regional Tanker Truck Driver Name Role Phone Edvin Haynes Primary Care Provider REASON FOR VISIT PH/TCM Encounters Encounter Location Date Provider Diagnosis Edvin Haynes MD 10 [facility] [address] [place] [phone] 05/29/2024 Edvin Haynes Plan Of Treatment Next Appt Details Provider Name:Edvin Wayne ier, 03/16/2025 10:30:00 AM, [address] [place] [address], [address] [place] [address], [phone], Progress Notes * Madhu NGUYENDOB:[birth year] (80 yo M)Acc No.[id number]:05/29/2024 Patient: Madhu SCHMIDT Provider: Aleena Haynes MD :1945 A ge:79 Y S ex:Male Date:05/29/2024 Address:[address] [place] [address] [id number] Subjective: * Chief Complaints: * 1 . PH/TCM. * Medical History: Objective: * Vitals: Assessment: Plan: * Treatment: * * The named appointment provid er may or may not be the originator of this progress note, and it is not deemed complete until electronically signed by the appointment provider. Sign off status: Pending * Provider: Aleena Haynes MD Date: 1 07/30/2023 Generated for Manuel marc/Dinh/Samira on: 10:49 AM EDT
--- OUTSIDE RECORDS SUMMARY | 2024-09-03 03:30 | XMS_ITS ---
Author Organization Edvin Haynes MD Address [address] [place], [place] [phone] Care Team Providers Care Director Of Radiology Name Role Phone Edvin Haynes Primary Care Provider [phone] Results Component Value Reference Range Notes Liver Panel Reviewed date:09/03/2024 04:22:55 PM Interpretation: Performing Lab:[facility], [address] [place] [phone] Notes/Report: Bilirubin Total 0.8 0.0-1.0 mg/dL Bilirubin Direct 0.3 0.0-0.5 mg/dL Aspartate Amino Transferase 25 5-37 U/L Alanine Aminotransferase 21 0-40 U/L Total Protein 6.9 6.5-8.0 g/dL Albumin Level 4.2 3.5-5.0 g/dL Alkaline Phosphatase 100 39-117 U/L Glucose Fasting Reviewed date:09/03/2024 04:22:38 PM Interpretation: Performing Lab:[facility], [address] [place] [phone] Notes/Report: Glucose Fasting 109 60-99 mg/dL A fasting glucose from 100-125 mg/dl is considered impaired (pre-diabetes). Lipid Panel with Reflex Reviewed date:09/03/2024 04:22:09 PM Interpretation: Performing Lab:[facility], [address] [place] [phone] Notes/Report: Triglycerides 73 <150 mg/dL Desirable Triglyceride: less than 150 mg/dL Borderline High Triglyceride 150-199 mg/dL High Triglyceride: 200-499 mg/dL Very High Triglyceride: greater than or equal to 5OO mg/dL Cholesterol 147 <200 mg/dL Desirable Cholesterol: less than 200 mg/dL Borderline High Cholesterol: 200-239 mg/dL High Cholesterol: greater than 239 mg/dL LDL Cholesterol Calculated 91 <100 mg/dL Desirable LDL: less than 100 mg/dL Near Optimal/Above Optimal LDL: 110-129 mg/dL Borderline High LDL: 130-159 mg/dL High LDL: 160-189 mg/dL Very High LDL: greater than or equal to 190 mg/dL HDL Cholesterol 42 >40 mg/dL Desirable HDL: greater than 40 mg/dL Note: This HDL assay may give artificially low results in patients with liver disease. Hemoglobin A1c Reviewed date:09/03/2024 12:51:09 PM Interpretation: Performing Lab:[facility], [address] [place] [phone] Notes/Report: Hemoglobin A1c % 5.5 <6.0 % Hemoglobin A1C Reference Range Adults: 4.8 - 6.0 % Non diabetic: < 6.0 % Goal: < 7.0 % Additional Action Suggested: > 8.0 % Note: Hemoglobin A1c results are invalid for patients with abnormal amounts of HbF. Blood transfusions may impact the HbA1c concentration in the patient sample. Estimated Average Glucose 111 eAG = Estimated average glucose which is %A1C expressed as average glucose, using the formula of the [id number] Average Glucose study (ADAG), Diabetes Care, Vol.31,#8, Jan. 2007 REASON FOR VISIT fasting lipids Encounters Encounter Location Date Provider Diagnosis Edvin Haynes MD [address] [place] [address] Drive [address] [place], [place] [phone] 09/03/2024 Edvin Haynes Prediabetes R73.09 a nd Pure hypercholesterolemia E78.00 Assessments Encounter Date Diagnosis (ICD Code) Assessment Notes Treatment Notes Treatment Clinical Notes Section Notes 09/03/2024 Prediabetes (ICD-10 - R73.09) 09/03/2024 Pure hypercholesterolemia (ICD-10 - E78.00) Plan Of Treatment Next Appt Details Provider Name:Edvin Wayne ier, 03/16/2025 10:30:00 AM, [address], [address], [place], [phone], Progress Notes * Madhu NGUYEN AnayDOB:[birth year] (80 yo M)Acc No.[id number]:09/03/2024 Progress Note Patient: Madhu SCHMIDT Provider: Aleena Haynes MD :1945 A ge:79 Y S ex:Male Date:09/03/2024 Address:[address] [place] [address], [address] [id number] Subjective: * Chief Complaints: * 1 . Fasting lipids. * Medical History: Objective: * Vitals: Assessment: * Assessment: 1. P rediabetes - R73.09 (Primary) 2 . P ure hypercholesterolemia - E78.00? Plan: * Treatment: 2. P ure hypercholesterolemia L AB: Liver Panel (Collection Date & Time - 09/03/2024 07:30 AM) L AB: Glucose Fasting (Collection Date & Time - 09/03/2024 07:30 AM) L AB: Lipid Panel with Reflex (Collection Date & Time - 09/03/2024 07:30 AM) L AB: Hemoglobin A1c (Collection Date & Time - 09/03/2024 07:30 AM) * Procedure Codes: 3 6415 VENIPUNCT, ROUTINE* * * The named appointment provid er may or may not be the originator of this progress note, and it is not deemed complete until electronically signed by the appointment provider. Sign off status: Pending * Provider: Aleena Haynes MD Date: 0 09/03/2024 Generated for Manuel marc/Dinh/Marilynitting on: 1 10:49 AM EDT
--- OUTSIDE RECORDS SUMMARY | 2024-09-17 07:30 | XMS_ITS ---
Author Organization Edvin Haynes MD Address [address] [place], [place] [id number] Care Team Providers Care Recessing Machine Operator Name Role Phone Edvin Haynes Primary Care Provider Allergies No Known Allergies REASON FOR VISIT 6 month BP Medications Medication SIG (Take, Route, Frequency, Duration) Notes Start Date End Date Status Donepezil HCl 5 MG 1 tablet at bedtime Orally Once a day for 30 days 09/17/2024 Active Simvastatin 20 MG TAKE ONE TABLET BY M OUTH EVERY EVENING for 90 Active amLODIPine Besy-Benazepril HCl 10-40 MG TAKE ONE CAPSULE BY MOUTH EVERY DAY Active Vitamin D3 1000 UNIT 1 capsule Orally On ce a day Active Fish Oil 1000 MG 1 capsule Orally Thr ee times a week Active Centrum Silver - Orally Act george Omeprazole 20 MG 1 capsule Orally Onc e a day Active Zinc 100 MG 1 tablet Orally Once a day for 30 day(s) Active Acetaminophen ER 650 MG 1 tablets as nee ded Orally every 8 hrs Active Latanoprost 0.005 % INSTILL 1 DROP IN EA CH EYE IN THE EVENING Ophthalmic for 20 Active Imiquimod 3.75 % 1 application at bed time, leave on for 8 hours then wash off Externally Once a day Active Problems Problem Type SNOMED Code ICD Code Onset Dates Problem Status W/U Status Risk Notes Problem Mild cognitive disorder (355526899) MCI (mild cognitive impairment) (G31.84) Active confirmed Problem Dementia (24965059) Dementia (F03.90) Active confirmed Vital Signs Blood pressure systolic 142 mm Hg 09/18/19 25 Blood pressure diastolic 80 mm Hg 025 Height 71 in 09/17/2024 Weight 221 lbs 09/17/2024 BMI 30.82 kg/m2 09/17/2024 weight is down 1 pound since 03-12-24 Encounters Encounter Location Date Provider Diagnosis Edvin Haynes MD [address] [place], [place] [phone] 09/17/2024 Edvin Haynes MCI (mild cognitive impairment) G31.84 ; Essential hypertension I10 ; Dementia F03.90 ; Prediabetes R73.09 and Pure hypercholesterolemia E78.00 Assessments Encounter Date Diagnosis (ICD Code) Assessment Notes Treatment Notes Treatment Clinical Notes Section Notes 09/17/2024 MCI (mild cognitive impairment) (ICD-10 - G31.84) patient verbalized understanding of medication and directions for use 09/17/2024 Essential hypertensi on (ICD-10 - I10) stable, will continue current regiment and will continue to monitor 09/17/2024 Dementia (ICD-10 - F03.90) will contnue to monitor 09/17/2024 Prediabetes (ICD-10 - R73.09) stable, no need formedicaton at this time 09/17/2024 Pure hypercholesterolemia (ICD-10 - E78.00) stable, will continue current regiment Plan Of Treatment Medication Medication Name Sig Start Date Stop Date Notes Donepezil HCl 5 MG 1 tablet at bedtime Orally Once a day for 30 days 09/17/2024 Treatment Notes Assessment Notes MCI (mild cognitive impairment) patient verbalized understanding of medication and directions for use Essential hypertension stable, will cont inue current regiment and will continue to monitor Dementia will contnue to ulysses tor Prediabetes stable, no need form edicaton at this time Pure hypercholesterolemia stable, will c ontinue current regiment Next Appt Details Follow Up: 3 Months, Reason: Provider Name:Edvin dunne, 03/16/2025 10:30:00 AM, [address], [address], [place], [place], [phone], Progress Notes * Madhu NGUYEN AnayDOB:[birth year] (79 yo M)Acc No.[id number]:09/17/2024 Progress Notes Patient: Madhu SCHMIDT Provider: Aleena Haynes MD :1945 A ge:79 Y S ex:Male Date:09/17/2024 Address:[address] [place] [address], [address] [id number] Subjective: * Chief Complaints: * 6 month BP * HPI: S ymptom(s): patient is a 79 yo male here for 6 week follow up visit BP/ using premagen xtra for his memory. * ROS: G eneral/Constitutional: Denies C hills. D enies F atigue. D enies F ever. D enies H eadache. E NT: Denies S ore throat. R espiratory: Denies C ough. D enies S hortness of breath at rest. D enies S hortness of breath with exertion. C ardiovascular: Denies C hest pain at rest. D enies C hest pain with exertion. D enies D izziness. D enies P alpitations. D enies S hortness of breath. G astrointestinal: Denies D iarrhea. D enies N ausea. * Medical History: * Surgical History: * Hospitalization/Major Diagno stic Procedure: * Medications: T akingImiquimod 3.75 % Cream 1 application at bedtime, leave on for 8 hours then wash off Externally Once a day Zinc 100 MG Tablet 1 tablet Orally Once a day Omeprazole 20 MG Capsule Delayed Release 1 capsule Orally Once a day Centrum Silver - Tablet Orally Latanoprost 0.005 % Solution INSTILL 1 DROP IN EACH EYE IN THE EVENING Ophthalmic Acetaminophen ER 650 MG Tablet Extended Release 1 tablets as needed Orally every 8 hrs Fish Oil 1000 MG Capsule 1 capsule Orally Three times a week Vitamin D3 1000 UNIT Capsule 1 capsule Orally Once a day amLODIPine Besy-Benazepril HCl 10-40 MG Capsule TAKE ONE CAPSULE BY MOUTH EVERY DAY Simvastatin 20 MG Tablet TAKE ONE TABLET BY MOUTH EVERY EVENING Medication List reviewed and reconciled with the patientTaking Imiquimod 3.75 % Cream 1 application at bedtime, leave on for 8 hours then wash off Externally Once a day Taking Zinc 100 MG Tablet 1 tablet Orally Once a day Taking Omeprazole 20 MG Capsule Delayed Release 1 capsule Orally Once a day Taking Centrum Silver - Tablet Orally Taking Latanoprost 0.005 % Solution INSTILL 1 DROP IN EACH EYE IN THE EVENING Ophthalmic Taking Acetaminophen ER 650 MG Tablet Extended Release 1 tablets as needed Orally every 8 hrs Taking Fish Oil 1000 MG Capsule 1 capsule Orally Three times a week Taking Vitamin D3 1000 UNIT Capsule 1 capsule Orally Once a day Taking amLODIPine Besy-Benazepril HCl 10-40 MG Capsule TAKE ONE CAPSULE BY MOUTH EVERY DAY Taking Simvastatin 20 MG Tablet TAKE ONE TABLET BY MOUTH EVERY EVENING Medication List reviewed and reconciled with the patient * Allergies: N .K.D.A.yes[Allergies Verified] Objective: * Vitals: H t: 71, Wt: 221, BMI:30.82, BP:142/80, Repeat BP:130/80, Wt-k.24. weight is down 1 pound since 03-12-24. * P ast Orders: L ab:Liver Panel (Order Date - 09/03/2024) (Collection Date & Time - 09/03/2024 07:30 AM) Value Reference Range Bilirubin Total 0.8 0.0-1.0 - mg/dL Bilirubin Direct 0.3 0.0-0.5 - mg/dL Aspartate Amino Transferase 25 5-37 - U/L Alanine Aminotransferase 21 0-40 - U/L Total Protein 6.9 6.5-8.0 - g/dL Albumin Level 4.2 3.5-5.0 - g/dL Alkaline Phosphatase 100 39-117 - U/L L ab:Lipid Panel with Reflex (Order Date - 09/03/2024) (Collection Date & Time - 09/03/2024 07:30 AM) Value Reference Range Triglycerides 73 <150 - mg/dL Cholesterol 147 <200 - mg/dL LDL Cholesterol Calculated 91 <100 - mg/dL HDL Cholesterol 42 >40 - mg/dL L ab:Glucose Fasting (Order Date - 09/03/2024) (Collection Date & Time - 09/03/2024 07:30 AM) Value Reference Range Glucose Fasting 109 H 60-99 - mg/dL L ab:Hemoglobin A1c (Order Date - 09/03/2024) (Collection Date & Time - 09/03/2024 07:30 AM) Value Reference Range Hemoglobin A1c % 5.5 <6.0 - % Estimated Average Glucose 111 - mg/dL * Examination: G eneral Examination: GENERAL APPEARANCE: a lert, well hydrated, in no distress.? HEAD: n ormocephalic. EYES: B OTH EYES, normal. SKIN: g ood turgor. HEART: r egular rate and rhythm, no murmurs, rubs, gallops.? LUNGS: n o wheezes, rales, rhonchi, good air movement, clear to auscultation bilaterally. Assessment: * Assessment: 1. E ssential hypertension - I10 (Primary) 2 . M CI (mild cognitive impairment) - G31.84 3 . D ementia - F03.90 4 . P rediabetes - R73.09 5 . P ure hypercholesterolemia - E78.00 Plan: * Treatment: 2. M CI (mild cognitive impairment) Start Donepezil HCl Tablet, 5 MG, 1 tablet at bedtime, Orally, Once a day, 30 days, 30, Refills 5.? Notes: patient verbalized understanding of medication and directions for use 3. D ementia Notes: will contnue to monitor 4. P rediabetes Notes: stable, no need formedicaton at this time 5. P ure hypercholesterolemia Notes: stable, will continue current regiment * Procedure Codes: G 2211 Complex e/m visit add on * Follow Up: 3 Months * * Sign off status: Completed true * Provider: Aleena Haynes MD Date: 0 09/17/2024 Generated for Manuel marc/Dinh/eTransmitting on: 1 10:49 AM EDT History and Physical Notes * HPI (History of Present Illness) Category Sub-Category Detail Notes Category Not es Symptom(s) patient is a 79 yo male here for 6 week follow up visit BP/ using premagen xtra for his memory Examination Category Sub-Category Detail Notes Category Not es General Examination GENERAL APPEARANCE: alert, w ell hydrated, in no distress HEAD: normocephalic EYES: BOTH EYES, normal HEART: regular rate and rhy thm, no murmurs, rubs, gallops LUNGS: no wheezes, rales, r honchi, good air movement, clear to auscultation bilaterally SKIN: good turgor
--- OUTSIDE RECORDS SUMMARY | 2025-03-04 03:30 | XMS_ITS ---
Author Organization Edvin Haynes MD Address [address] [place] [phone] Care Team Providers Care Estimation Manager Name Role Phone Edvin Haynes Primary Care Provider [phone] REASON FOR VISIT HDF Immunizations Vaccine Route Administration Date Status Comme nts Influenza High Dose IM Intramuscular 03/04/2025 Administer ed Encounters Encounter Location Date Provider Diagnosis Edvin Haynes MD [address] [facility] [address] [place] [phone] 03/04/2025 Edvin Haynes Encounter for administration of vaccine Z23 Assessments Encounter Date Diagnosis (ICD Code) Assessment Notes Treatment Notes Treatment Clinical Notes Section Notes 03/04/2025 Encounter for administration of vaccine (ICD-10 - Z23) Plan Of Treatment Next Appt Details Provider Name:Edvin Wayne ier, 03/16/2025 10:30:00 AM, [address] [facility], [address] [facility], [place], [place], [phone], Progress Notes * Madhu NGUYENDOB:[birth year] (80 yo M)Acc No.[id number]:03/04/2025 Progress Note Patient: Madhu SCHMIDT Provider: Aleena Haynes MD :1945 A ge:80 Y S ex:Male Date:03/04/2025 Address:[address] [place] [address], [place] [id number] Subjective: * Chief Complaints: * 1 . HDF. * Medical History: Objective: * Vitals: Assessment: * Assessment: 1. E ncounter for administration of vaccine - Z23 (Primary) Plan: * Treatment: * Immunizations: Influenza High Dose : 0.5 mL (Dose No:1) (Route: Intramuscular) given by Selma Gregorio , Office Staff on Left Deltoid * Procedure Codes: 9 0662 FLU VACC PRSV FREE INC ANTIG, G0008 ADMN FLU VAC NO FEE SCHED SAME DAY * * The named appointment provid er may or may not be the originator of this progress note, and it is not deemed complete until electronically signed by the appointment provider. Sign off status: Pending * Provider: Aleena Haynes MD Date: 1 Generated for Manuel marc/Dinh/Marilynitting on: 10:49 AM EDT
--- OUTSIDE RECORDS SUMMARY | 2025-03-09 03:30 | XMS_ITS ---
Author Organization Edvin Haynes MD Address [address] [place], [place] [phone] Care Team Providers Care Communications Marketing Intern Name Role Phone Edvin Haynes Primary Care Provider Results Component Value Reference Range Notes Complete Blood Count Auto Di ff (Not yet reviewed by provider) Interpretation: Performing Lab:[facility], [address] [place] [id number] Notes/Report: White Blood Count 6.8 4.8-10.8 X10*3/uL Red Blood Count 4.41 4.60-5.80 X10*6/uL Hemoglobin 13.5 14.0-18.0 g/dl Hematocrit 40.7 42.0-52.0 % Mean Corpuscular Volume 92.3 80.0-98.0 fL Mean Corpuscular Hemoglobin 30.6 27.0-33.0 pg Mean Corpuscular HGB Conc 33.2 31.0-36.0 g/dl Red Cell Distribution Width 13.8 11.0-16.0 % Platelet Count 210 160-400 X10*3/uL Mean Platelet Volume 9.7 9.4-12.4 fL Neutrophils Percent Auto 65.0 45-73 % Imm Gran Pct Auto 0.1 0.0-0.4 % Lymphocytes Percent Auto 24.7 20-40 % Monocytes Percent Auto 7.8 2-11 % Eosinophils Percent Auto 2.0 0-4 % Basophils Percent Auto 0.4 0-2 % NRBC Pct Auto 0.0 0.0-0.2 /100WBC Neutrophils Absolute Auto 4.4 2.0-8.3 x10*3/u L Imm Gran Abs Auto 0.01 0.00-0.03 X10*3/uL Lymphocytes Absolute Auto 1.7 1.2-4.9 X10*3/u L Monocytes Absolute Auto 0.5 0.1-1.2 X10*3/uL Eosinophils Absolute Auto 0.1 0.0-0.4 X10*3/u L Basophils Absolute Auto 0.0 0.0-0.2 X10*3/uL NRBC Abs Auto 0.000 0.0-0.012 X10*3/uL Hemoglobin A1c (Not yet revi ewed by provider) Interpretation: Performing Lab:[address] [phone] Notes/Report: Hemoglobin A1c % 5.5 <6.0 % [...] average glucose, using the formula of the D4N-Kjicxdu Average Glucose study (ADAG), Diabetes Care, Vol.31,#8, Jan. 2007 UA ClnCatch+Micro w/rflx Cul t (Not yet reviewed by provider) Interpretation: Performing Lab:[address] [phone] Notes/Report: Urine, Clean Catch Color Urine Yellow Appearance Urine Clear PH 7.0 5.0-9.0 Glucose Urine UA Negative Negative mg/dL Urine Blood Negative Negative Specific [place] - Urine 1.020 1.005-1.025 Urine Protein Negative Neg-Trace mg/dL Urine Ketones Negative Negative mg/dL Nitrite Urine Negative Negative Leukocyte Esterase Urine Negative Negative RBC Urine 0-2 0-2 /HPF WBC Urine 0-5 0-5 /HPF Squamous Epithelial Cell Urine 0-2 0-2 /HPF Bacteria Urine None Seen None Seen Hyaline Casts Urine 0-2 0-2 /LPF REASON FOR VISIT yearly fasting labs Encounters Encounter Location Date Provider Diagnosis Edvin Haynes MD [address] [place] [address] Drive [address] [place], [place] [phone] 03/09/2025 Edvin Haynes Essential hypertensi on I10 ; Prediabetes R73.09 ; Pure hypercholesterolemia E78.00 and Vitamin D deficiency E55.9 Assessments Encounter Date Diagnosis (ICD Code) Assessment Notes Treatment Notes Treatment Clinical Notes Section Notes 03/09/2025 Essential hypertensi on (ICD-10 - I10) 03/09/2025 Prediabetes (ICD-10 - R73.09) 03/09/2025 Pure hypercholesterolemia (ICD-10 - E78.00) 03/09/2025 Vitamin D deficiency (ICD-10 - E55.9) Plan Of Treatment Pending Test Test Name Order Date Complete Blood Count Auto Diff Comprehensive [place]. Panel Fast Lipid Panel 03/09/2025 PSA,Total (Free>4and<10) 03/09/2025 Vitamin D 25-OH Total 03/09/2025 Microalbumin, Random 03/09/2025 Hemoglobin A1c 03/09/2025 UA ClnCatch+Micro w/rflx Cult 03/09/2025 Next Appt Details Provider Name:Edvin Wayne ier, 03/16/2025 10:30:00 AM, [address] [place] [address] Drive, [address], [place], [place], [phone], Progress Notes * Madhu NGUYENDOB:[birth year] (80 yo M)Acc No.[id number]:03/09/2025 Progress Note Patient: Dexter RICARDOMadhu Provider: Aleena Haynes MD :1945 A ge:80 Y S ex:Male Date:03/09/2025 Address:[address] [place], [place] [phone] Subjective: * Chief Complaints: * 1 . Yearly fasting labs. * Medical History: Objective: * Vitals: Assessment: * Assessment: 1. E ssential hypertension - I10 (Primary) 2 . P rediabetes - R73.09 ? 3 . P ure hypercholesterolemia - E78.00 4 . V itamin D deficiency - E55.9 Plan: * Treatment: 2. P rediabetes L AB: Complete Blood Count Auto Diff (Collection Date & Time - 03/09/2025 07:30 AM) L AB: Comprehensive [place]. Panel Fast L AB: Lipid Panel L AB: PSA,Total (Free>4and<10) L AB: Vitamin D 25-OH Total L AB: Microalbumin, Random L AB: Hemoglobin A1c (Collection Date & Time - 03/09/2025 07:30 AM) L AB: UA ClnCatch+Micro w/rflx Cult (Collection Date & Time - 03/09/2025 07:30 AM) 3. P ure hypercholesterolemia L AB: Complete Blood Count Auto Diff (Collection Date & Time - 03/09/2025 07:30 AM) L AB: Comprehensive [place]. Panel Fast L AB: Lipid Panel L AB: PSA,Total (Free>4and<10) L AB: Vitamin D 25-OH Total L AB: Microalbumin, Random L AB: Hemoglobin A1c (Collection Date & Time - 03/09/2025 07:30 AM) L AB: UA ClnCatch+Micro w/rflx Cult (Collection Date & Time - 03/09/2025 07:30 AM) 4. V itamin D deficiency L AB: Complete Blood Count Auto Diff (Collection Date & Time - 03/09/2025 07:30 AM) L AB: Comprehensive [place]. Panel Fast L AB: Lipid Panel L AB: PSA,Total (Free>4and<10) L AB: Vitamin D 25-OH Total L AB: Microalbumin, Random L AB: Hemoglobin A1c (Collection Date & Time - 03/09/2025 07:30 AM) L AB: UA ClnCatch+Micro w/rflx Cult (Collection Date & Time - 03/09/2025 07:30 AM) * Procedure Codes: 3 6415 VENIPUNCT, ROUTINE* * * The named appointment provid er may or may not be the originator of this progress note, and it is not deemed complete until electronically signed by the appointment provider. Sign off status: Pending * Provider: Aleena Haynes MD Date: 1 Generated for Manuel marc/Dinh/Samira on: 10:50 AM EDT
[2025-03-09 09:35] LABS: MANUAL DIFF FLAG NO
[2025-03-09 10:17] LABS: Hematocrit 40.7 % (42.0-52.0); Hemoglobin 13.5 g/dl (14.0-18.0); Imm Gran Abs Auto 0.01 X10*3/uL (0.00-0.03); Imm Gran Pct Auto 0.1 % (0.0-0.4); Lymphocytes Absolute Auto 1.7 X10*3/uL (1.2-4.9); Mean Corpuscular HGB Conc 33.2 g/dl (31.0-36.0); Mean Corpuscular Hemoglobin 30.6 pg (27.0-33.0); Mean Corpuscular Volume 92.3 fL (80.0-98.0); NRBC Abs Auto 0.000 X10*3/uL (0.0-0.012); NRBC Pct Auto 0.0 /100WBC (0.0-0.2); Platelet Count 210 X10*3/uL (160-400); Red Blood Count 4.41 X10*6/uL (4.60-5.80); White Blood Count 6.8 X10*3/uL (4.8-10.8)
[2025-03-09 10:21] LABS: Appearance Urine Clear; Glucose Urine UA Negative (Negative); PH 7.0 (5.0-9.0); Specific Gravity - Urine 1.020 (1.005-1.025)
[2025-03-09 10:31] LABS: Total Hemoglobin (HGBA1C) 3479.4623 umol/L
[2025-03-09 10:38] LABS: Alanine Aminotransferase 19 U/L (0-40); Albumin Level 4.2 g/dL (3.5-5.0); Alkaline Phosphatase 86 U/L (39-117); Anion Gap 12 (12-20); Aspartate Amino Transferase 22 U/L (5-37); Blood Urea Nitrogen 15 mg/dL (9-16); Calcium 8.8 mg/dL (8.4-10.2); Carbon Dioxide 29 mmol/L (22-29); Chloride 108 mmol/L (96-108); Cholesterol 141 mg/dL (<200); Estimated Glomerular Filt Rate > 60; HDL Cholesterol 40 mg/dL (>40); Potassium 3.9 mmol/L (3.3-5.1); Sodium 145 mmol/L (135-145); Total Protein 6.6 g/dL (6.5-8.0); Triglycerides 60 mg/dL (<150)
--- OUTSIDE RECORDS SUMMARY | 2025-03-09 10:50 | XMS_ITS | Patient Health Record ---
Author Organization Edvin Haynes MD Address [address] [place], [place] [id number] Care Team Providers [employer] Dean Name Role Phone Edvin Haynes Primary Care Provider [phone] Allergies No Known Allergies Results Component Value Reference Range Notes Liver Panel Reviewed date:09/03/2024 04:22:55 PM Interpretation: Performing Lab:[facility], [address] [place] [phone] Notes/Report: Bilirubin Total 0.8 0.0-1.0 mg/dL Bilirubin Direct 0.3 0.0-0.5 mg/dL Aspartate Amino Transferase 25 5-37 U/L Alanine Aminotransferase 21 0-40 U/L Total Protein 6.9 6.5-8.0 g/dL Albumin Level 4.2 3.5-5.0 g/dL Alkaline Phosphatase 100 39-117 U/L Glucose Fasting Reviewed date:09/03/2024 04:22:38 PM Interpretation: Performing Lab:[facility], [address] [place] [phone] Notes/Report: Glucose Fasting 109 60-99 mg/dL A fasting glucose from 100-125 mg/dl is considered impaired (pre-diabetes). Lipid Panel with Reflex Reviewed date:09/03/2024 04:22:09 PM Interpretation: Performing Lab:[facility], [address] [place] [phone] Notes/Report: Triglycerides 73 <150 mg/dL Desirable Triglyceride: [...] A1c Reviewed date:09/03/2024 12:51:09 PM Interpretation: Performing Lab:[facility], [address] [place] [phone] Notes/Report: Hemoglobin A1c % 5.5 <6.0 % [...] average glucose, using the formula of the X6Q-Yxczrzr Average Glucose study (ADAG), Diabetes Care, Vol.31,#8, 2007 Complete Blood Count Auto Di ff (Not yet reviewed by provider) Interpretation: Performing Lab:[facility], [address] [place] [phone] Notes/Report: White Blood Count 6.8 4.8-10.8 X10*3/uL [...] yet revi ewed by provider) Interpretation: Performing Lab:[facility], [address] [place] [phone] Notes/Report: Hemoglobin A1c % 5.5 <6.0 % [...] average glucose, using the formula of the V8M-Krldhme Average Glucose study (ADAG), Diabetes Care, Vol.31,#8, Jan. 2007 UA ClnCatch+Micro w/rflx Cul t (Not yet reviewed by provider) Interpretation: Performing Lab:[facility], [address] [place] [phone] Notes/Report: Urine, Clean Catch Color Urine Yellow Appearance Urine Clear PH 7.0 5.0-9.0 Glucose Urine UA Negative Negative mg/dL Urine Blood Negative Negative Specific [place] - Urine 1.020 1.005-1.025 Urine Protein Negative Neg-Trace mg/dL Urine Ketones Negative Negative mg/dL Nitrite Urine Negative Negative Leukocyte Esterase Urine Negative Negative RBC Urine 0-2 0-2 /HPF WBC Urine 0-5 0-5 /HPF Squamous Epithelial Cell Urine 0-2 0-2 /HPF Bacteria Urine None Seen None Seen Hyaline Casts Urine 0-2 0-2 /LPF Occult Blood, Stool, Guaiac Reviewed date:03/12/2024 12:01:13 PM Interpretation:Negative Performing Lab: Notes/Report: Negative Occult Blood, Stool, Guaiac Neg Hold Gold Reviewed date:09/03/2024 10:58:43 AM Interpretation: Performing Lab:[facility], [address] [place] [phone] Notes/Report: Hold Gold See Note Specimen held untested for 24 hours; Call to request Chemistry testing. Reason For Referral No Information Medications Medication SIG (Take, Route, Frequency, Duration) Notes Start Date End Date Status amLODIPine Besy-Benazepril HCl 10-40 MG TAKE ONE CAPSULE BY MOUTH EVERY DAY for 90 Active Centrum Silver - Orally Act george Omeprazole 20 MG 1 capsule Orally Onc e a day Active Donepezil HCl 5 MG 1 tablet at bedtime Orally Once a day for 30 days 09/17/2024 Active Zinc 100 MG 1 tablet Orally Once a day for 30 day(s) Active Imiquimod 3.75 % 1 application at bed time, leave on for 8 hours then wash off Externally Once a day Active Simvastatin 20 MG TAKE ONE TABLET BY M OUTH EVERY EVENING for 90 Active Vitamin D3 1000 UNIT 1 capsule Orally On ce a day Active Fish Oil 1000 MG 1 capsule Orally Thr ee times a week Active Acetaminophen ER 650 MG 1 tablets as nee ded Orally every 8 hrs Active Latanoprost 0.005 % INSTILL 1 DROP IN EA CH EYE IN THE EVENING Ophthalmic for 20 Active Immunizations Vaccine Route Administration Date Status Comme nts DECLINED, PNEUMO Unknown 11/24/2012 Administered DECLINED, FLU Unknown 05/05/2013 Administered Fluarix Quadrivalent IM Intramuscular 07/09/2017 Administe red Fluarix Quadrivalent IM Intramuscular 02/25/2018 Administe red Prevnar 13 IM Intramuscular 04/04/2018 Administered Fluarix Quadrivalent IM Intramuscular 02/20/2019 Administe red PPSV23 (Pnemovax) IM Intramuscular 08/03/2019 Administered Influenza High Dose IM Intramuscular 02/05/2020 Administer ed Covid Vaccine Unknown 07/15/2020 Administered Pfizer Covid Vaccine Unknown 08/05/2020 Administered Pfzier Influenza High Dose IM Intramuscular 02/24/2021 Administer ed SARS-COV-2 Pfizer Unknown 04/21/2021 Administered Influenza High Dose IM Intramuscular 02/06/2022 Administer ed Influenza High Dose IM Intramuscular 03/14/2023 Administer ed Influenza High Dose IM Intramuscular 02/14/2024 Administer ed Influenza High Dose IM Intramuscular 03/04/2025 Administer ed PPSV23 (Pnemovax) Unknown 12/06/2014 Refused Flu Vaccine Unknown 05/30/2015 Refused Fluarix Quadrivalent Unknown 07/18/2016 Refused PPSV23 (Pnemovax) Unknown 07/18/2016 Refused DECLINED, PNEUMO Unknown 11/30/2013 Pending Social History Tobacco Use: Social History Observation [...] ast year? No Points 0 Interpretation Negative Problems Problem Type SNOMED Code ICD Code Onset Dates Problem Status W/U Status Risk Notes Problem 626986537 Tubular adenoma (D36.9) Active confir med Problem 670198193 Basal cell carci noma (C44.91) Active confirmed Problem 73461784 Vitamin D defici ency (E55.9) Active confirmed Problem 54414114 Essential hypert ension (I10) Active confirmed Problem 1144580 Prediabetes (R73.09) Active confirmed Problem 85884209 Memory loss (R41.3) Active confirmed Problem Dementia (81788541) Dementia (F03.90) Active confirmed Problem 461099234 Dupuytrens contr acture (M72.0) Active confirmed Problem 539516568 Pure hypercholesterolemia (E78.00) Active confirmed Problem Mild cognitive disorder (770091650) MCI (mild cognitive impairment) (G31.84) Active confirmed Vital Signs Blood pressure diastolic 80 mm Hg 09/17/2024 ashli ght is down 1 pound since 03-12-24 Height 71 in 09/17/2024 weight is down 1 pound since 03-12-24 Blood pressure systolic 142 mm Hg 09/17/2024 weig ht is down 1 pound since 03-12-24 Weight 221 lbs 09/17/2024 weight is down 1 pound since 03-12-24 BMI 30.82 kg/m2 09/17/2024 weight is down 1 pound since 03-12-24 Encounters Encounter Location Date Provider Diagnosis Edvin Haynes MD [address] [place] [id number] 09/03/2024 Edvin Haynes Prediabetes R73.09 a nd Pure hypercholesterolemia E78.00 Edvin Haynes MD [address] [place] [address] Drive [address] [place] [id number] 03/04/2025 Edvin Hayens Encounter for administration of vaccine Z23 Edvin Haynes MD [address] [place] [id number] 03/09/2025 Edvin Haynes Essential hypertensi on I10 ; Prediabetes R73.09 ; Pure hypercholesterolemia E78.00 and Vitamin D deficiency E55.9 Edvin Haynes MD [address] [place] [id number] 03/12/2024 Edvin Haynes Essential hypertensi on I10 ; Prediabetes R73.09 ; Pure hypercholesterolemia E78.00 ; Basal cell carcinoma C44.91 ; Vitamin D deficiency E55.9 ; Colon cancer screening Z12.11 and Depression screening Z13.31 Edvin Haynes MD [address] [place] [address] [id number] 09/17/2024 Edvin Haynes MCI (mild cognitive impairment) G31.84 ; Essential hypertension I10 ; Dementia F03.90 ; Prediabetes R73.09 and Pure hypercholesterolemia E78.00 Assessments Encounter Date Diagnosis (ICD Code) Assessment Notes Treatment Notes Treatment Clinical Notes Section Notes 09/03/2024 Prediabetes (ICD-10 - R73.09) 03/04/2025 Encounter for administration of vaccine (ICD-10 - Z23) 03/09/2025 Essential hypertensi on (ICD-10 - I10) 03/12/2024 Essential hypertensi on (ICD-10 - I10) doing well, stable at goal, will continue current regiment 03/12/2024 Prediabetes (ICD-10 - R73.09) stable. no need for medication at this time 09/17/2024 MCI (mild cognitive impairment) (ICD-10 - G31.84) patient verbalized understanding of medication and directions for use 09/17/2024 Essential hypertensi on (ICD-10 - I10) stable, will continue current regiment and will continue to monitor 09/03/2024 Pure hypercholesterolemia (ICD-10 - E78.00) 03/09/2025 Prediabetes (ICD-10 - R73.09) 03/12/2024 Pure hypercholesterolemia (ICD-10 - E78.00) well controlled, will continue current regiment and will continue to monitor 09/17/2024 Dementia (ICD-10 - F03.90) will contnue to monitor 03/09/2025 Pure hypercholesterolemia (ICD-10 - E78.00) 03/12/2024 Basal cell carcinoma (ICD-10 - C44.91) followed by dermatology. had recent skin lesion removed 09/17/2024 Prediabetes (ICD-10 - R73.09) stable, no need formedicaton at this time 03/09/2025 Vitamin D deficiency (ICD-10 - E55.9) 03/12/2024 Vitamin D deficiency (ICD-10 - E55.9) stbale, will continue current regiment 09/17/2024 Pure hypercholesterolemia (ICD-10 - E78.00) stable, will continue current regiment 03/12/2024 Colon cancer screeni ng (ICD-10 - Z12.11) guaiac negative 03/12/2024 Depression screening (ICD-10 - Z13.31) negative screen Plan Of Treatment Pending Test Test Name Order Date Electrocardiogram (EKG) 01/06/2016 Electrocardiogram (EKG) 01/10/2017 Electrocardiogram (EKG) 01/23/2018 MRI BRAIN NO CONTRAST 07/04/2023 Complete Blood Count Auto Diff Comprehensive Flasher. Panel Fast Lipid Panel 03/09/2025 PSA,Total (Free>4and<10) 03/09/2025 Vitamin D 25-OH Total 03/09/2025 Microalbumin, Random 03/09/2025 Hemoglobin A1c 03/09/2025 UA ClnCatch+Micro w/rflx Cult 03/09/2025 Next Appt Details Provider Name:Edvin Wayne ier, 03/16/2025 10:30:00 AM, [address] [place] [address], [address], [place], [place], [id number], Insurance Providers Payer Name Payer Address Payer Phone Subscriber Number Group Number Insured Name Patient Relationship to Insured Coverage Start Date Coverage End Date MEDICARE [employer] [address] [place] [address] [id number] Madhu Colon Self - patient is the insured [facility] [employer] [facility] CLAIM DIV [address] [place] [phone] [id number] Madhu Colon Self - patient is the insured Medical (General) History Medical History History ICD Code Refuses flu [id number] Colonoscopy 12/29/2012 due in 5 years; colonoscop done 08/22/18 - Dr. Way (no further testing needed)
--- OUTSIDE RECORDS SUMMARY | 2025-03-09 10:50 | XMS_ITS | Patient Health Record ---
Author Organization [facility] Address [address] [place] [address] Care Team Providers Care Classroom Aide Name Role Phone Edvin Haynes MD Primary Care Provider Long Payne Unavailable [phone] Reason For Referral No Information Medications Medication SIG (Take, Route, Frequency, Duration) Notes Start Date End Date Status Vitamin D3 1000 UNIT 1 capsule Orally On ce a day Active Simvastatin 20 MG 1 tablet in the even ing Orally Once a day Active Lotrel 10-40 MG 1 capsule Orally Onc e a day Active Aspirin Adult Low Strength 81 MG 1 tablet Orally Once a day Not-Taking Omeprazole 20 MG 1 capsule Orally Onc e a day Active Centrum Silver 1 tablet Orally once a day Active Immunizations Vaccine Route Administration Date Status Comme nts Influenza Unknown 04/03/2018 Administered Problems Problem Type SNOMED Code ICD Code Onset Dates Problem Status W/U Status Risk Notes Problem 659120966 Encounter for screening for malignant neoplasm of colon (Z12.11) Active confirmed Problem 071646024 History of adenomatous polyp of colon (Z86.010) Active confirmed Problem 991158469 Gastroesophageal reflux disease with esophagitis (K21.0) Active confirmed Problem 786452091 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) Active confirmed Problem 206825046 Gastroesophageal reflux disease, esophagitis presence not specified (K21.9) Active confirmed Problem 52818132 Hiatal hernia (K44.9) Active confirmed Plan Of Treatment Future Test Test Name Order Date UPPER GI ENDOSCOPY 01/12/2016 UPPER GI ENDOSCOPY 05/20/2018 COLONOSCOPY 05/20/2018 Insurance Providers Payer Name Payer Address Payer Phone Subscriber Number Group Number Insured Name Patient Relationship to Insured Coverage Start Date Coverage End Date MEDICARE OF [place] [address] [place] [address] [id number] EDILIA NGUYEN Self - patient is the insured [facility] [employer]AN [address] [place] [address] [id number] EDILIA NGUYEN Self - patient is the insured Medical (General) History Medical History History ICD Code Hypertension Denies [place],DM,CVA,Lung disease,renal dise ase Hyperlipidemia Tubular adenoma with high gr hiro dysplasia removed in 2005 in [place]--F/U colon in 08/2009 and 2012 neg. except for small tubular adenomas Ramirez's esophagus with ero sive esophagitis and moderate-sized hiatal hernia found on his upper endoscopy in October of 2015. F/U EGD in 04/2016 revealed healed esophagitis and small area of Ramirez's--no dysplasia Surgical History Surgery Date(Month/Year) pilonidal cyst removal basal cell cancers on chest removed Lasik and cataracts bilateral
[2025-03-09 10:55] LABS: PSA,Total (Free>4and<10) 3.54 ng/mL (0.00-4.00)
[2025-03-09 11:03] LABS: Microalbum/Creatinine Ratio Ur 4.5 ug/mg cr (<30)
== END 2025-03-09 09:33 | disposition home or self-care (01) ==
LOC: HO.LNP 09:32
PROVIDERS: Visit Provider Internal Medicine
DX: Z12.5 Encounter for screening for malignant neoplasm of prostate (principal); I10 Essential (primary) hypertension; E55.9 Vitamin D deficiency, unspecified; E78.00 Pure hypercholesterolemia, unspecified; R73.09 Other abnormal glucose
CPT/HCPCS: 80053; 80061; 81001; 82043; 82306; 82570; 83036; 84153; 85025